=== PATIENT | female | born 2005 | race African-American/Black ===

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

== ENCOUNTER 2024-11-01 22:56 | Emergency (ER) | payer OTHER | END 2024-11-01 23:26 | disposition home or self-care (01) | LOC: MADERS 22:56 | DX: J06.9 Acute upper respiratory infection, unspecified (principal); J45.909 Unspecified asthma, uncomplicated | CPT/HCPCS: 99283 ==

== ENCOUNTER 2024-11-07 12:31 | Emergency (ER) | payer OTHER ==
[2024-11-07 12:47] LABS: Glucose, Urine (Dipstick) Negative (Negative); Leukocyte Negative (Negative); Pregnancy Test - Urine (BHCG) Negative (Negative); Pregu Control Background? CLEAR/WHITE (CLR/WHITE); Pregu Control Bar Appear? YES (CONTROL BAR); Protein, Urine (Dipstick) 30 mg/dL (Neg-Trace); Specific Gravity, Urine 1.020 (1.005-1.030)
[2024-11-07 12:53] LABS: Bacteria/HPF Rare-Few HPF (None Seen); CAUTI Indications for Culture Dysuria,urgency,freq; Mucous/LPF 1+ LPF (<2+); RBC/HPF 0-3 HPF (0-3); Urine Culture Reflex No No; WBC/HPF 0-3 HPF (0-3)
[2024-11-07] MEDS ORDERED: Ondansetron PF 4 MG/2 ML Vial ONE (13:11)
[2024-11-07 13:43] LABS: Hematocrit 44.5 % (36.0-47.0); Hemoglobin 14.3 g/dL (12.0-16.0); Mean Corpuscular Hemoglobin 27.6 pg (25.0-35.0); Mean Corpuscular Volume 86.0 fl (78.0-98.0); Platelet Count 334 10x3/uL (130-400); Red Blood Cell (RBC) Count 5.18 mill/uL (4.00-5.20); White Blood Cell (WBC) Count 8.5 10x3/uL (4.8-10.8)
[2024-11-07 13:54] LABS: MDiff Complete? YES; Manual Diff?? YES
[2024-11-07 13:55] LABS: Platelet Adequacy Comment Appears Adequate
[2024-11-07 14:02] LABS: Anion Gap 15 mmol/L (10-20); BUN (Urea Nitrogen) 7 mg/dL (7.0-18.7); Calc. Creatinine Clearance 0 mL/min (70-130); Carbon Dioxide 21 mmol/L (22-29); Chloride 109 mmol/L (98-107); Potassium 4.0 mmol/L (3.5-5.1); Sodium 141 mmol/L (136-145)
[2024-11-07 14:03] LABS: ALT (SGPT) 30 U/L (Less than 34); AST (SGOT) 29 U/L (11-34); Albumin 4.1 g/dL (3.1-4.5); Alkaline Phosphatase 86 U/L (40-100); Bilirubin, Total 0.5 mg/dL (0.3-1.2); Calcium 8.9 mg/dL (7.8-10.44); Globulin 3.2 g/dL (2.4-3.5); Glucose 91 mg/dL (70-105); Lipase 12 U/L (8-78)
== END 2024-11-07 17:12 | disposition home or self-care (01) ==
LOC: MADERS 12:31
DX: R11.2 Nausea with vomiting, unspecified (principal); F10.90 Alcohol use, unspecified, uncomplicated
CPT/HCPCS: 80053; 81001; 81025; 83690; 85025; 96361; 96374; J2405; J7030

== ENCOUNTER 2025-03-09 22:59 | Emergency (ER) | payer OTHER | END 2025-03-09 23:55 | disposition home or self-care (01) | LOC: MADERS 22:59 | DX: R07.89 Other chest pain (principal); J06.9 Acute upper respiratory infection, unspecified; J45.909 Unspecified asthma, uncomplicated; E66.9 Obesity, unspecified | CPT/HCPCS: 71046; 87081; 87428; 87430; 93005 ==

== ENCOUNTER 2025-03-28 23:00 | Emergency (ER) | payer OTHER ==
[2025-03-28] MEDS ORDERED: Amoxicillin/Potassium Clav 875 MG TAB ONE (23:44)
== END 2025-03-29 00:09 | disposition home or self-care (01) ==
LOC: MADERS 23:00
DX: J01.90 Acute sinusitis, unspecified (principal); J45.909 Unspecified asthma, uncomplicated; Z79.51 Long term (current) use of inhaled steroids
CPT/HCPCS: 87428; 99283